=== PATIENT | male | born 1975 | race Caucasian/White ===

== ENCOUNTER → 2019-10-03 | Day surgery (SDC) | payer OTHER ==
[2019-09-30 10:50] LABS: Basophils # (auto) 0 uL; Basophils % (auto) 0.6 % (0.0-2.0); Eosinophils # (auto) 0.1 uL; Hematocrit 40.3 % (41.0-53.0); Hemoglobin 13.7 g/dL (13.5-17.5); Lymphocytes # (auto) 1.1 uL; Lymphocytes % (auto) 19.6 % (10.0-50.0); Mean Corpuscular Hemoglobin 31.9 pg (28.0-32.0); Mean Corpuscular Volume 93.9 fL (80.0-100.0); Monocytes # (auto) 0.6 uL; Monocytes % (auto) 10.9 % (0.0-12.0); Neutrophils # (auto) 3.9 uL; Neutrophils % (auto) 67.9 % (37.0-80.0); Platelet Count (auto) 270 10^3/uL (140-450); Red Blood Cells 4.29 10^6/uL (4.5-5.90); Red Cell Distribution Width 12.4 % (11.8-14.3); White Blood Cell 5.7 10^3/uL (4.4-10.8)
[2019-09-30 11:50] LABS: INR 1.01 (0.9-1.15); Partial Thromboplastin Time 26.4 sec (23.64-32.05)
[~2019-10-03] VITALS: Ht 175.3 cm; Wt 78.0 kg
[~2019-10-03] MED LIST: MIDAZOLAM HCL 5 MG/ML-1ML VIAL ONE; SIMV-8 PO; SODIUM CHLORIDE LOCK 10 ML ONE; TELM1TAB33 PO; diphenhdrAMINE HCL 50 MG/1 ML VL ONE; fentaNYL CITRATE 100 MCG/2 ML VL ONE
[2019-10-03] MEDS: fentaNYL CITRATE 100 MCG/2 ML VL ONE ×2 (10:37→10:40)
[2019-10-03] MEDS: MIDAZOLAM HCL 5 MG/ML-1ML VIAL ONE ×2 (10:37→10:40)
[2019-10-03 11:25] VITALS: BP 126/85
== END | disposition home or self-care (01) ==
LOC: GI 09:08
PROVIDERS: ATTEND Internal Medicine Gastroenterology
DX: K92.1 Melena (principal); K64.8 Other hemorrhoids; I10 Essential (primary) hypertension; E78.00 Pure hypercholesterolemia, unspecified; Z98.890 Other specified postprocedural states; Z79.899 Other long term (current) drug therapy; Z98.52 Vasectomy status
CPT/HCPCS: 36415; 45378; 85025; 85610; 85730; J1200; J2250; J3010; J7030; 99152